=== PATIENT | female | born 1975 | race Caucasian/White ===

== ENCOUNTER 2017-01-15 13:56 | Emergency (ER) | payer MEDICARE ==
[~2017-01-15] VITALS: Wt 76.5 kg
[2017-01-15] MEDS ORDERED: KETOROLAC 30 MG INJ IM STA (14:57)
[2017-01-15] MEDS ORDERED: TRAM50TA2 PO (15:13)
[2017-01-15] MEDS ORDERED: NAPR-260 PO (15:14)
--- NOTE | 2017-01-15 15:28 | ERD ---
ER Documentation Chief Complaint Date/Time DATE: 01/15/17 TIME: 15:16 Chief Complaint BILATERAL LEG BACK PAIN X 3 YEARS HPI This is a 41-year-old female who presents to the emergency department today complaining of upper back pain, low back pain and pain in her legs for the past several years. Patient had previously been seeing a primary care physician that gave her Flomax, Advil and Tylenol however approximately 2 years ago he moved to [place] and she has not seen a physician since. Patient states approximately 8 months ago she went to [facility] and had x-rays and they told her that there was a "problem with her disc". Patient states that she is disabled from previous liver problems from her youth. Denies any fevers or chills, loss of bowel or bladder control. ROS All systems reviewed and are negative except as per history of present illness. Medications Home Meds Active Scripts Naproxen* (Naprosyn*) 500 Mg Tablet, 500 MG PO BID Y for PAIN AND/OR INFLAMMATION, #30 TAB Prov:YADY BRNADON PA-C 01/15/17 Tramadol HCl (Tramadol HCl) 50 Mg Tablet, 50 MG PO Q4 Y for PAIN, #20 TAB Prov:YADY BRANDON PA-C 01/15/17 Allergies Allergies: Coded Allergies: No Known Allergy (Unverified , 01/15/17) PMhx/Soc Medical and Surgical Hx: pt denies Surgical Hx Hx Miscellaneous Medical Probl: Yes (CHRONIC BACK PAIN) Physical Exam Vitals Vital Signs Date Time Temp Pulse Resp B/P Pulse Ox O2 Delivery O2 Flow Rate FiO2 01/15/17 13:59 99.0 82 18 172/97 18 Physical Exam Const: No acute distress Head: Atraumatic Eyes: Normal Conjunctiva ENT: Normal External Ears, Nose and Mouth. Neck: Full range of motion..~ No meningismus. Tenderness to palpation bilateral upper trapezius. No midline tenderness. Pulses 2+. Distal neurovascularly intact Resp: Clear to auscultation bilaterally Cardio: Regular rate and rhythm, no murmurs Skin: No petechiae or rashes Back: Midline tenderness and bilateral paraspinal tenderness. Full active range of motion with pain. Pulses 2+. Distal neurovascularly intact. Ext: No cyanosis, or edema Neur: Awake and alert Psych: Normal Mood and Affect Results 24 hrs Current Medications Medications (Trade) Dose Ordered Sig/Scarlet Route PRN Reason Start Time Stop Time Status Last Admin Dose Admin Ketorolac Tromethamine (Toradol) 30 mg ONCE STAT IM 01/15/17 14:57 01/15/17 14:58 DC 01/15/17 15:11 Procedures/MDM This a 41-year-old female who presents to the emergency department today complaining of multiple areas of pain. Patient has not been seen here at this emergency department since 2005. Given patient's complaint of back pain and leg pain I did offer to obtain new x-rays for the patient as I do not have access to her records from [facility] however patient has declined at this time. Patient was requesting referral to a primary care physician and medication for her pain. Patient is afebrile and otherwise well-appearing. Her pain appears to be chronic. Low suspicion for cauda equina or abscess. Low suspicion for acute fracture dislocation. I cannot say for certain whether patient has disc space narrowing or osteophytes at this time that could be causing some of her leg pain. Patient was also complaining of pain in her upper back and have explained to the patient that she may benefit from seeing a specialist either in orthopedics or rheumatology for further evaluation and management. Patient understood. Patient was given a Toradol injection here in the emergency department. I have given her a very short course of tramadol for home. Patient has really not been taking any narcotic medications and I do understand that this appears to be chronic in nature however patient does not appear to be exhibiting drug- seeking behavior and again has not been seen here in this emergency department for over 10 years. Patient was also given a prescription for Naprosyn. I also give her a referral information for Dr. Perrin, roof painter At this time the patient is stable for discharge and outpatient management. Patient should follow up with their PCP in the next 1-2 days. They may return to the emergency department sooner for any persistent or worsening of symptoms. Patient understood and agreed with the plan. Departure Diagnosis: Primary Impression: Pain Condition: Fair Patient Instructions: Pain Management, Back Pain (Acute Or Chronic) [facility] Usted se dobson hecho un examen mdico de control que le indica que no est en miriam condicin que requiera tratamiento urgente en el Departamento de Emergencia. Un estudio ms profundo y el tratamiento de enriquez condicin pueden esperar sin ningn riesgo hasta que usted sea atendida/o en el consultorio de enriquez mdico o miriam cl yarely. Es responsabilidad suya arreglar miriam magui para el seguimiento del zena. MANEJO DE CONDICIONES NO URGENTES EN EL FUTURO 1) Si usted tiene un mdico de atencin primaria: Usted debera llamar a enriquez mdico de atencin primaria antes de venir al departamento de emergencia. Despus de las horas de consultorio, enriquez doctor o enriquez asociado/a est disponible por telfono. El mdico o enfermero de serafin en el servicio telefnico puede asesorarle por zee medio para atender el problema, o zena contrario se puede programar miriam magui. 2) Si usted no tiene un mdico de atencin primaria: Llame al mdico o clnica de referencia que aparece abajo sobia las horas de consultorio para hacer miriam magui para que le vean. CLINICAS: [facility] [phone] [facility] [facility] [phone] [facility]. [facility] [phone] [facility]. [place] [id number] [phone] [facility]. [place] [id number] [phone] [facility]. [phone] [address] [facility] Hours: Mon-Fri 9:00 AM - 5:00 PM Additional Instructions: Llame al doctor MAANA y aki miriam MAGUI PARA DENTRO DE 1-2 BROWN.Dgale a la secretaria que nosotros le instruimos hacer esta magui.Avise o llame si enriquez condicin se empeora antes de la magui. Regresa aqui si peor o no mejor. Take tramadol for severe pain otherwise take Naprosyn or Motrin Make an appointment with a primary care physician for referral to specialist YADY BRANDON PA-C Jan 15, 2017 15:28
== END 2017-01-15 15:22 | disposition home or self-care (01) ==
LOC: FTE 13:56
DX: M54.5 Low back pain (principal); M54.9 Dorsalgia, unspecified; M79.662 Pain in left lower leg; M79.661 Pain in right lower leg
CPT/HCPCS: 96372; 99284; J1885

== ENCOUNTER 2017-03-24 14:34 | Emergency (ER) | payer MEDICARE, OTHER ==
[~2017-03-24] VITALS: Ht 154.9 cm; Wt 76.5 kg
[~2017-03-24 14:34] MED LIST: HYDR-3498 PO; NAPR-260 PO; PRED20TA PO; TRAM50TA2 PO
[2017-03-24 14:39] VITALS: Ht 154.9 cm; Wt 76.5 kg
[2017-03-24] MEDS ORDERED: PRED20TA PO (15:01)
[2017-03-24] MEDS ORDERED: NAPR-260 PO (15:01)
[2017-03-24] MEDS ORDERED: TRAM50TA2 PO (15:01)
--- NOTE | 2017-03-24 15:29 | ERD ---
ER Documentation Chief Complaint Date/Time DATE: 03/24/17 TIME: 15:25 Chief Complaint back pain and needs refill for rhematoid arthritis meds HPI This patient is a 41-year-old female with past medical history of rheumatoid arthritis diagnosed approximately 5 years ago presenting to the emergency department requesting a refill on her medication and complaining of bilateral ankle, wrist, and lower lumbar pain. Her symptoms have been worsening over the past week. Alleviating factors include her medications and rest. Aggravating factors include activity. She denies dizziness, headache, loss of bowel or bladder function, fevers, chills, or other symptoms. ROS All systems reviewed and are negative except as per history of present illness. Medications Home Meds Active Scripts Naproxen* (Naprosyn*) 500 Mg Tablet, 500 MG PO BID Y for PAIN AND/OR INFLAMMATION, #30 TAB Prov:LARRY VENEGAS PA-C 03/24/17 Prednisone* (Prednisone*) 20 Mg Tab, 40 MG PO DAILY for 4 Days, #8 TAB Prov:LARRY VENEGAS PA-C 03/24/17 Tramadol HCl (Tramadol HCl) 50 Mg Tablet, 50 MG PO Q4 Y for PAIN, #20 TAB Prov:LARRY VENEGAS PA-C 03/24/17 Naproxen* (Naprosyn*) 500 Mg Tablet, 500 MG PO BID Y for PAIN AND/OR INFLAMMATION, #30 TAB Prov:YADY BRANDON PA-C 01/15/17 Tramadol HCl (Tramadol HCl) 50 Mg Tablet, 50 MG PO Q4 Y for PAIN, #20 TAB Prov:YADY BRANDON PA-C 01/15/17 Hydrocodone Bit-Acetaminophen* ([place]*) 5-325 Mg Tab, 1 TAB PO Q6 Y for PAIN, # 20 TAB Prov:DENNY BRUCE PA-C 04/03/16 Prednisone* (Prednisone*) 20 Mg Tab, 40 MG PO DAILY for 5 Days, TAB Prov:DENNY BRUCE PA-C 04/03/16 Allergies Allergies: Coded Allergies: No Known Allergy (Unverified , 01/15/17) PMhx/Soc Hx Miscellaneous Medical Probl: Yes (CHRONIC BACK PAIN) Hx Alcohol Use: No Hx Substance Use: No Hx Tobacco Use: No Physical Exam Vitals Vital Signs Date Time Temp Pulse Resp B/P Pulse Ox O2 Delivery O2 Flow Rate FiO2 03/24/17 14:39 98.8 75 18 115/57 100 Physical Exam Const: Well-appearing female in no acute distress. Head: Atraumatic Eyes: Normal Conjunctiva ENT: Normal External Ears, Nose and Mouth. Neck: Full range of motion..~ No meningismus. Resp: Clear to auscultation bilaterally Cardio: Regular rate and rhythm, no murmurs Abd: Soft, non tender, non distended. Normal bowel sounds Skin: No petechiae or rashes Back: No midline or flank tenderness Ext: No cyanosis, or edema Neur: Awake and alert Psych: Normal Mood and Affect Procedures/MDM 41-year-old female presenting to the emergency department for bilateral wrist, bilateral ankle, and bilateral lower lumbar pain. On physical examination the patient does not have any significant swelling. History and clinical exam is consistent with the patient's rheumatoid arthritis. I will prescribe the patient tramadol, prednisone, and naproxen and the patient was advised to have very close follow-up with her primary care physician. Strict ER return precautions were discussed. The [email or web address] website was consulted to evaluate for drug-seeking behavior and results showed no significant or concerning activity. The patient's questions and concerns were addressed and she was hemodynamically stable prior to discharge. Departure Diagnosis: Primary Impression: Pain Condition: Fair Patient Instructions: Living with Rheumatoid Arthritis Additional Instructions: Follow up with your PCP within the next 1-3 days for a repeat evaluation and a possible referral to a specialist, if required. Return the the emergency department immediately if symptoms worsen or change. If you have any questions regarding medications, ask your pharmacist or us before you leave. If any adverse reactions, occur while taking your medications, discontinue the treatment and return to the emergency department immediately. If any new or worsening symptoms, uncontrolled fevers, or other unexplained symptoms occur, return to the emergency department immediately. Take your medications as directed, and complete the entire course of treatment. LARRY VENEGAS PA-C March 24, 2017 15:29
== END 2017-03-24 16:10 | disposition home or self-care (01) ==
LOC: FTE 14:34 → E/R 16:10
DX: M54.5 Low back pain (principal); M25.572 Pain in left ankle and joints of left foot; M25.571 Pain in right ankle and joints of right foot; M25.532 Pain in left wrist; M25.531 Pain in right wrist
CPT/HCPCS: 99284

== ENCOUNTER 2017-04-12 15:20 | Emergency (ER) | payer MEDICARE ==
[~2017-04-12] VITALS: Ht 152.4 cm; Wt 76.0 kg
[2017-04-12 15:28] VITALS: Ht 152.4 cm; Wt 76.0 kg
[2017-04-12] MEDS ORDERED: NAPR-260 PO (15:43)
[2017-04-12] MEDS ORDERED: TRAM50TA2 PO (15:43)
[2017-04-12] MEDS ORDERED: CARI350T PO (15:43)
--- NOTE | 2017-04-12 15:46 | ERD ---
ER Documentation Chief Complaint Date/Time DATE: 04/12/17 TIME: 15:45 Chief Complaint BACK PAIN X5 YEARS, WORSE TODAY, OUT OF MEDICATION HPI 41-year-old female has chronic back pain. She states she can get into see her primary care doctor until next week she would like a refill of her medications which include naproxen, Ultram, and Soma. She denies any new injuries. Denies any saddle anesthesia or bowel or bladder incontinence. ROS All systems reviewed and are negative except as per history of present illness. Medications Home Meds Active Scripts Tramadol HCl (Tramadol HCl) 50 Mg Tablet, 50 MG PO Q4 Y for PAIN, #20 TAB Prov:FELISHA GARG PA-C 04/12/17 Carisoprodol* (Soma*) 350 Mg Tablet, 350 MG PO TID Y for MUSCLE SPASMS, #15 TAB Prov:FELISHA GARG PA-C 04/12/17 Naproxen* (Naprosyn*) 500 Mg Tablet, 500 MG PO BID Y for PAIN AND/OR INFLAMMATION, #30 TAB Prov:FELISHA GARG PA-C 04/12/17 Naproxen* (Naprosyn*) 500 Mg Tablet, 500 MG PO BID Y for PAIN AND/OR INFLAMMATION, #30 TAB Prov:LARRY VENEGAS PA-C 03/24/17 Prednisone* (Prednisone*) 20 Mg Tab, 40 MG PO DAILY for 4 Days, #8 TAB Prov:LARRY VENEGAS PA-C 03/24/17 Tramadol HCl (Tramadol HCl) 50 Mg Tablet, 50 MG PO Q4 Y for PAIN, #20 TAB Prov:LARRY VENEGAS PA-C 03/24/17 Naproxen* (Naprosyn*) 500 Mg Tablet, 500 MG PO BID Y for PAIN AND/OR INFLAMMATION, #30 TAB Prov:YADY BRANDON PA-C 01/15/17 Tramadol HCl (Tramadol HCl) 50 Mg Tablet, 50 MG PO Q4 Y for PAIN, #20 TAB Prov:YADY BRANDON PA-C 01/15/17 Hydrocodone Bit-Acetaminophen* ([place]*) 5-325 Mg Tab, 1 TAB PO Q6 Y for PAIN, # 20 TAB Prov:DENNY BRUCE PA-C 04/03/16 Prednisone* (Prednisone*) 20 Mg Tab, 40 MG PO DAILY for 5 Days, TAB Prov:JANIS DENNY PHAM 04/03/16 Allergies Allergies: Coded Allergies: No Known Allergy (Unverified , 01/15/17) PMhx/Soc Hx Miscellaneous Medical Probl: Yes (CHRONIC BACK PAIN) Hx Alcohol Use: No Hx Substance Use: No Hx Tobacco Use: No FmHx Family History: No diabetes Physical Exam Vitals Vital Signs Date Time Temp Pulse Resp B/P Pulse Ox O2 Delivery O2 Flow Rate FiO2 04/12/17 15:28 98.8 98 18 143/82 99 Physical Exam General: well developed, well nourished, alert, nontoxic, no distress Head: normocephalic, atraumatic Neck: Supple, nontender, no lymphadenopathy, no midline tenderness Respiratory: Clear to auscaultation bilaterally, speaks in full sentences, no use of accesory muscles or labored breathing, no rales, ronchi, or wheezing Back: no midline tenderness, no step offs or bony abnormalities, sensation to light touch in tact Procedures/MDM Patient has flare of her chronic back pain. I reviewed her cures database and there is no suspicious activity so I gave her a small amount of her medications to hold her over until she is able to see her primary care doctor next week. Recommended this patient follow up with her primary care doctor within 48 hours or return to the emergency room for any worsening of symptoms. However this time I do believe there is suitable for outpatient management. I answered all their questions and they agreed with the plan and were discharged home. Departure Diagnosis: Primary Impression: Rheumatoid arthritis Condition: Stable Patient Instructions: Rheumatoid Arthritis Additional Instructions: Llame al doctor ESTHER y aki miriam MAGUI PARA DENTRO DE 1-2 BROWN.Dgale a la secretaria que nosotros le instruimos hacer esta magui.Avise o llame si enriquez condicin se empeora antes de la magui. Regresa aqui si peor o no mejor. FELISHA GARG PA-C Apr 12, 2017 15:46
== END 2017-04-12 15:44 | disposition home or self-care (01) ==
LOC: E/R 15:20
DX: M06.9 Rheumatoid arthritis, unspecified (principal)
CPT/HCPCS: 99284

== ENCOUNTER 2017-08-27 17:27 | Emergency (ER) | payer MEDICARE ==
[~2017-08-27] VITALS: Wt 71.0 kg
[~2017-08-27 17:27] MED LIST changes: +CARI350T PO
[2017-08-27] MEDS ORDERED: TRAM-40 PO (19:29)
[2017-08-27] MEDS ORDERED: LAMO25TA PO (19:29)
[2017-08-27] MEDS ORDERED: HYDR-3025 PO ×2 (19:29→19:32)
[2017-08-27] MEDS ORDERED: LEVE500T8 PO (19:29)
--- NOTE | 2017-08-27 19:50 | ERD ---
ER Documentation Chief Complaint Chief Complaint BACK PAIN SINCE YESTERDAY HPI Patient is a 41-year-old female with a past medical history of rheumatoid arthritis and chronic back pain and seizures who presents to the ED with medication refill. Patient states that she ran out of her medication and does not have a primary until next week. She denies any new onset seizures. Denies headache or dizziness. No lower bladder incontinence. No new onset trauma or falls. No fever or chills. No other complaints. ROS All systems reviewed and are negative except as per history of present illness. Medications Home Meds Active Scripts Hydrocodone Bit-Acetaminophen* (Vicodin* ES) 7.5-300 Mg Tablet, 1 TAB PO TID Y for PAIN for 15 Days, #15 TAB Prov:MATIAS TAYLOR PA-C 08/27/17 Tramadol Hcl* (Ultram*) 50 Mg Tablet, 100 MG PO Q6H Y for PAIN for 7 Days, #20 TAB Prov:MATIAS TAYLOR PA-C 08/27/17 Levetiracetam* (Levetiracetam*) 500 Mg Tablet, 500 MG PO TID for 10 Days, #30 TAB Prov:MATIAS TAYLOR PA-C 08/27/17 Lamotrigine* (Lamotrigine*) 25 Mg Tablet, 25 MG PO QID for 10 Days, #40 TAB Prov:MATIAS TAYLOR PA-C 08/27/17 Tramadol HCl (Tramadol HCl) 50 Mg Tablet, 50 MG PO Q4 Y for PAIN, #20 TAB Prov:FELISHA GARG PA-C 04/12/17 Carisoprodol* (Soma*) 350 Mg Tablet, 350 MG PO TID Y for MUSCLE SPASMS, #15 TAB Prov:FELISHA GARG PA-C 04/12/17 Naproxen* (Naprosyn*) 500 Mg Tablet, 500 MG PO BID Y for PAIN AND/OR INFLAMMATION, #30 TAB Prov:FELISHA GARG PA-C 04/12/17 Naproxen* (Naprosyn*) 500 Mg Tablet, 500 MG PO BID Y for PAIN AND/OR INFLAMMATION, #30 TAB Prov:LARRY VENEGAS PA-C 03/24/17 Prednisone* (Prednisone*) 20 Mg Tab, 40 MG PO DAILY for 4 Days, #8 TAB Prov:LARRY VENEGAS PA-C 03/24/17 Tramadol HCl (Tramadol HCl) 50 Mg Tablet, 50 MG PO Q4 Y for PAIN, #20 TAB Prov:LARRY VENEGAS PA-C 03/24/17 Naproxen* (Naprosyn*) 500 Mg Tablet, 500 MG PO BID Y for PAIN AND/OR INFLAMMATION, #30 TAB Prov:YADY BRANDON PA-C 01/15/17 Tramadol HCl (Tramadol HCl) 50 Mg Tablet, 50 MG PO Q4 Y for PAIN, #20 TAB Prov:YADY BRANDON PA-C 01/15/17 Hydrocodone Bit-Acetaminophen* ([place]*) 5-325 Mg Tab, 1 TAB PO Q6 Y for PAIN, # 20 TAB Prov:DENNY BRUCE PA-C 04/03/16 Prednisone* (Prednisone*) 20 Mg Tab, 40 MG PO DAILY for 5 Days, TAB Prov:DENNY BRUCE PA-C 04/03/16 Allergies Allergies: Coded Allergies: No Known Allergy (Unverified , 01/15/17) PMhx/Soc Hx Miscellaneous Medical Probl: Yes (CHRONIC BACK PAIN; seizures; RA) Hx Alcohol Use: No Hx Substance Use: No Hx Tobacco Use: No Smoking Status: Never smoker Physical Exam Vitals Vital Signs Date Time Temp Pulse Resp B/P Pulse Ox O2 Delivery O2 Flow Rate FiO2 08/27/17 17:33 98.0 78 18 123/81 99 Physical Exam GENERAL: Well-developed, well-nourished female. Appears in no acute distress. HEAD: Normocephalic, atraumatic. LUNG: Clear to auscultation bilaterally. No rhonchi, wheezing, rales or coarse breath sounds. HEART: Regular rate and rhythm. No murmurs, rubs or gallops. BACK: No midline tenderness. Spinal or paraspinal tenderness Extremities: Equal pulses bilaterally. No peripheral clubbing, cyanosis or edema. No unilateral leg swelling. NEUROLOGIC: Alert and oriented. Moving all four extremities. 5/5 strength in all extremities. Normal speech. Steady gait. cranial nerves 2-12 intact. SKIN: Normal color. Warm and dry. No rashes or lesions. Capillary refill < 2 seconds Results 24 hrs Current Medications Medications (Trade) Dose Ordered Sig/Scarlet Route PRN Reason Start Time Stop Time Status Last Admin Dose Admin Tramadol HCl (Ultram) 50 mg ONCE ONCE PO 08/27/17 20:00 08/27/17 20:01 08/27/17 19:36 Procedures/MDM ER COURSE: I kept the patient and/or family informed of laboratory and diagnostic imaging results throughout the emergency room course. MEDICAL DECISION MAKING: This is a 41-year-old female with a past medical history of rheumatoid arthritis , chronic back pain and seizures who presents with medication refill. Vital signs were reviewed. Patient is afebrile. Patient is not hypoxic. She is not toxic or ill-appearing. Patient states that she takes a Vicodin 3 times a day, tramadol 6 times a day, levetiracetam 3 times a day and lamotrigine 4 times a day. I have low suspicion for drug-seeking behavior. Patient was looked up on the DO cures report. Patient was given refills to last her 1 week until she reaches her primary care provider. Advised patient that she needs to have close follow-up with her general doctor for her chronic diseases. Low suspicion for intracranial hemorrhage, meningitis, intracranial mass, concussion , temporal arteritis, stroke, elevated intracranial pressure, seizure. Low suspicion for cauda equine syndrome, spinal epidural hematoma, spinal epidural abscess, osteomyelitis, fracture, aortic dissection, AAA, pyelonephritis, nephrolithiasis, septic stone, obstructed stone. DISCHARGE: At this time, patient is stable for discharge and outpatient management with no new complaints during the ER course. Patient was sent home with Kristy, tramadol , levetiracetam and lamotrigine, information to Dr. Perrin and importance of following up with her primary care provider.. Patient will be discharged home with instructions to recheck for new or worsening symptoms such as fever, nausea , weakness, LOC and to follow up with primary care in the next 1-2 days. Patient was advised to return to the ER for any new or worsening symptoms. Plan was discussed and patient and/or family understands and agrees. Home instructions were given. Departure Diagnosis: Primary Impression: Medication refill Additional Impression: Back pain Back pain location: low back pain Chronicity: chronic Back pain laterality : bilateral Sciatica presence: without sciatica Qualified Code: M54.5 - Chronic bilateral low back pain without sciatica Condition: Stable Patient Instructions: Taking Medicine Safely, Back Pain (Acute Or Chronic) Referrals: WENDI PERRIN Additional Instructions: YOU NEED TO FOLLOW UP WITH YOUR GENERAL DOCTOR FOR REFILLS Call your primary care doctor TOMORROW for an appointment during the next 1-2 days.See the doctor sooner or return here if your condition worsens before your appointment time. MATIAS TAYLOR PA-C Aug 27, 2017 19:49
[2017-08-27] MEDS ORDERED: traMADol 50 MG TAB PO ONE (20:00)
== END 2017-08-27 19:57 | disposition home or self-care (01) ==
LOC: FTE 17:27
DX: Z76.0 Encounter for issue of repeat prescription (principal); M54.5 Low back pain
CPT/HCPCS: 99284

== ENCOUNTER 2017-12-17 13:25 | Emergency (ER) | END 2017-12-17 15:24 | disposition home or self-care (01) ==

== ENCOUNTER 2018-03-25 11:31 | Emergency (ER) | END 2018-03-25 11:57 | disposition home or self-care (01) ==

== ENCOUNTER 2018-05-05 12:28 | Emergency (ER) | END 2018-05-05 15:35 | disposition home or self-care (01) ==

== ENCOUNTER 2018-05-17 16:04 | Emergency (ER) | END 2018-05-17 19:13 | disposition home or self-care (01) ==